=== PATIENT | male | born 1990 | race Caucasian/White ===

== ENCOUNTER 2017-12-26 17:14 | Emergency (ER) | payer OTHER ==
[~2017-12-26] VITALS: Ht 188 cm; Wt 79.4 kg
[~2017-12-26 17:14] MED LIST: BACTRIM DS TAB1 EACH PO; COLACE100 MG PO; HYDROCODONE-AP1 EAC6 PO; HYDROCORTISONE30 G9 RECTAL; IBUPROFEN 800800 MG PO; NEXIUM40 MG PO; TRAMADOL 50 MG50 MG PO; ULTRACET TABLE1 EACH PO
[2017-12-26] MEDS ORDERED: NOHOMEMEDICATIONS (17:32)
[2017-12-26] MEDS ORDERED: HYDROCORTISONE30 G9 RECTAL (18:04)
[2017-12-26] MEDS ORDERED: HYDROCODONE-AP1 EAC6 PO (18:04)
[2017-12-26] MEDS ORDERED: RECTASMOOTHE30 GM TOP (18:05)
[2017-12-26 18:15] VITALS: BP 145/85
== END 2017-12-26 18:15 | disposition home or self-care (01) ==
LOC: M.ERS 17:14
DX: K64.9 Unspecified hemorrhoids (principal); K21.9 Gastro-esophageal reflux disease without esophagitis; F17.210 Nicotine dependence, cigarettes, uncomplicated